=== PATIENT | male | born 1980 | race Caucasian/White ===

== ENCOUNTER → 2018-07-07 | Outpatient (CLI) | payer OTHER ==
[2018-07-04 13:34] VITALS: BMI 35.7
[2018-07-07 14:05] VITALS: BP 122/84; PULSE 75; RESP 16
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
== END ==
LOC: PNWHC3 13:43
PROVIDERS: ATTEND Anesthesiology
DX: G89.29 Other chronic pain (principal); M25.561 Pain in right knee; Z79.891 Long term (current) use of opiate analgesic; Z79.2 Long term (current) use of antibiotics
CPT/HCPCS: 99211

== ENCOUNTER → 2018-08-03 | Outpatient (CLI) | payer OTHER ==
[2018-08-03 12:28] VITALS: BP 117/80; PULSE 89; RESP 20
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
== END | disposition home or self-care (01) ==
LOC: PNWHC3 12:02
PROVIDERS: ATTEND Anesthesiology
DX: G89.21 Chronic pain due to trauma (principal); M25.561 Pain in right knee; S89.81XA Other specified injuries of right lower leg, initial encounter; L40.9 Psoriasis, unspecified; Z79.891 Long term (current) use of opiate analgesic; Z79.899 Other long term (current) drug therapy
CPT/HCPCS: 99211

== ENCOUNTER → 2018-09-19 | Outpatient (CLI) | payer OTHER ==
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
== END | disposition home or self-care (01) ==
LOC: PNWHC3 12:10
PROVIDERS: ATTEND Specialist
DX: G89.21 Chronic pain due to trauma (principal); M25.561 Pain in right knee; S89.91XA Unspecified injury of right lower leg, initial encounter; Z79.891 Long term (current) use of opiate analgesic; Z79.899 Other long term (current) drug therapy; Z79.1 Long term (current) use of non-steroidal anti-inflammatories (NSAID); Z72.0 Tobacco use; Z71.6 Tobacco abuse counseling
CPT/HCPCS: 80307; 99211; G0482

== ENCOUNTER → 2018-11-18 | Outpatient (CLI) | payer OTHER ==
[2018-11-18 14:36] LABS: Basophils # (A) 0.1 k/uL (0-0.2); Basophils % (A) 1 %; Eosinophils # (A) 0.2 k/uL (0-0.7); Eosinophils % (A) 3 %; HCT 35.9 % (39.0-53.0); HGB 11.4 gm/dL (13.0-17.5); Lymphocytes # (A) 2.5 k/uL (1.0-4.8); Lymphocytes % (A) 28 %; MCH 28.6 pg (25.0-35.0); MCHC 31.8 g/dL (31.0-37.0); Mean Platelet Volume 6.4; Monocytes # (A) 0.5 k/uL (0-1.0); Monocytes % (A) 6 %; Neutrophils # (A) 5.6 k/uL (1.3-7.7); Neutrophils % (A) 62 %; Platelet Count 615 k/uL (150-450); RBC 3.99 m/uL (4.30-5.90)
[2018-11-18 16:00] LABS: Erythrocyte Sedimentation Rate 94 mm/hr (0-15)
[2018-11-18 19:07] LABS: Albumin 4.5 g/dL (3.80-4.90); Albumin/Globulin Ratio 1.32 (1.60-3.17); Anion Gap 7.3 mmol/L (4.00-12.00); Calcium 9.4 mg/dL (8.7-10.3); Carbon Dioxide 23.7 mmol/L (21.6-31.8); Globulin 3.4 g/dL (1.6-3.3); Potassium 4.6 mmol/L (3.5-5.5); Total Bilirubin 0.4 mg/dL (0.3-1.2); Total Protein 7.9 g/dL (6.2-8.2)
[2018-11-18 19:50] LABS: Rheumatoid Factor 5 IU/mL (0-15)
== END | disposition home or self-care (01) ==
LOC: LABWHC1 12:47
PROVIDERS: ATTEND Physician Assistant
DX: Z00.00 Encounter for general adult medical examination without abnormal findings (principal); L40.52 Psoriatic arthritis mutilans
CPT/HCPCS: 36415; 80053; 80061; 85025; 85652; 86038; 86431

== ENCOUNTER → 2018-11-28 | Outpatient (CLI) | payer OTHER ==
[2018-11-28 13:26] VITALS: BP 124/87; PULSE 98; RESP 16
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
== END ==
LOC: PNWHC3 13:01
PROVIDERS: ATTEND Anesthesiology
DX: S82.141A Displaced bicondylar fracture of right tibia, initial encounter for closed fracture (principal); Z79.891 Long term (current) use of opiate analgesic; Z79.899 Other long term (current) drug therapy; Z72.0 Tobacco use; Z71.6 Tobacco abuse counseling
CPT/HCPCS: 99211

== ENCOUNTER → 2019-01-02 | Outpatient (CLI) | payer OTHER ==
[2019-01-02 13:06] VITALS: BP 130/79; PULSE 104; RESP 16
--- NOTE | 2019-01-02 13:27 | P.PAINPG ---
Subjective Progress Note Date: 01/02/19 Deniz is a 38-year-old gentleman presented today for follow-up. He continues to have pain in his right leg and right knee. He has had multiple knee surgeries most recently December 2018. He reports he had a meniscal repair done in December. He reports that his pain is a little bit better but not very much. He continues to use pain medications together by throughout the day. He still on crutches. He is also complaining more of numbness and tingling along with shooting pain going down his right leg from his upper leg. He reports that he has some weakness in his right leg which is new compared to before. He uses [place] 5 mg 1-2 tablets per day along with gabapentin and Robaxin. He denies any side effects from the current medication regimen. He denies any changes in his medication regimen. Objective - Vital Signs Vital signs: Vital Signs Temp Pulse 104 H 01/02/19 12:57 Resp 16 01/02/19 12:57 BP 130/79 01/02/19 12:57 Pulse Ox 99 01/02/19 12:57 Intake & Output 01/01/19 01/02/19 01/02/19 18:59 06:59 18:59 Weight 106.594 kg - Exam PHYSICAL EXAM: Constitutional: Awake and alert no distress Cardiovascular exam: Regular rate, no lower extremity edema, palpable pulses bilaterally Respiratory exam: No audible wheezing, no accessory muscle usage Abdominal exam: Soft nontender Muscular skeletal exam: - Cervical spine: Nontender to palpation bilaterally. Range of motion is not limited. Spurling is negative bilateral. Facet loading is negative bilaterally - Lumbar spine: Preserved lumbar lordosis. No changes in skin. Nontender palpation bilateral. Patient has full range of motion in flexion and extension as well as lateral sidebending. Straight leg raise is positive on the right at about 45. Facet loading is negative. Nontender over the SI joints. JESUS MANUEL Negative, Gaenselons negative, SI Joint compression negative. Neuro exam: Normal sensation bilateral upper and lower extremities. Deep tendon reflexes in upper extremities are 2+. Deep tendon reflex in the left leg is normal. Deep tendon reflexes decreased in the right leg compared to the left.. Solis's is negative Psychiatric exam: Cooperative, good insight Assessment and Plan Assessment: #1 chronic knee pain #2 lumbar radiculopathy Plan: And discussion with patient regarding pain medications in the usage. Patient has signed the opioid started talking form maps was checked. Urine drug screens of been appropriate over the his visits in the clinic. Also discussed with him that his radicular symptoms down right leg and weakness in the right leg are concerning for nerve impingement from his lumbar spine. This point I believe an MRI of lumbar spine may be required in order to rule out any nerve root impingement. I will refill his medications today for 2 months time. PQRS Measure Charge Sheet Measure #130: Documentation of Current Meds in Medical Chart: Patient's medications documented in chart Measure #226: Tobacco Use: Screen & Cessation Intervention: Pt screened for tobacco use AND intervention given Measure #111: Pneumonia Vaccination: Pneumococcal vaccine administered or previously received Measure #47: Advance Care Plan: Advance care planning discussed & documented, plan or surrogate given Measure #412: Opioid Treatment Agreement: Documented signed opioid trtmnt agreemnt min once during opioid trtmnt Measure #408: Opioid Therapy Follow-up Evaluation: Patient had f/u eval minimum every 3 months during opioid therapy Measure #317: Preventitive Care & Scrn High Bld Press & F/U: Normal blood pressure, f/u not required Measure #128: Body Mass Index (BMI) Screening & Follow-up: BMI documented ABOVE normal parameters - f/u documented Measure #131: Pain Assessment & Follow-up: Pain positive & plan documented PQRS Narrative: Smoking Status Current every day smoker Do You Want the Pneumonia Yes Vaccine AT THIS TIME? Narcotic Agreement Date Signed 07/07/18 Blood Pressure 130/79 Pain Intensity [Right Knee] 8 Scale Used Numeric (1 - 10) Hx Alcohol Use (MH) No Home Medications: Ambulatory Orders Acetaminophen Tab [Tylenol Tab] 1,000 mg PO Q6H 04/26/18 Gabapentin [Neurontin] 600 mg PO TID 04/26/18 HYDROcodone/APAP 5-325MG [[place] 5-325] 1 tab PO BID PRN 05/12/18 PARoxetine [Paxil] 20 mg PO DAILY 05/12/18 Methocarbamol [Robaxin-750] 750 mg PO TID 06/09/18 Zolpidem [Ambien] 5 mg PO HS 06/09/18 Fluticasone Nasal [place] [Flonase Nasal [place]] 2 spr EA NOSTRIL DAILY 07/04/18 Ibuprofen [Motrin Ib] 800 mg PO Q6H 07/04/18 Injection In Humira Family 1 injection SQ Q90D 07/04/18 Ointment 1 applicate TOPICAL QID 09/19/18 Controlled Substance Measures - Controlled Substance Measures Is patient prescribed a controlled substance at discharge?: Yes When asked, does pt state using other controlled substances?: No If prescribed controlled substance>3 days was MAPS reviewed?: Yes If Rx opioid, was Start Talking consent form obtained?: Yes If opioid is for acute pain is fill amount 7 days or less?: No Was information provided regarding opioid addiction?: Yes
== END ==
LOC: PNWHC3 12:24
PROVIDERS: ATTEND Hospitalist
DX: G89.29 Other chronic pain (principal); M25.561 Pain in right knee; M54.16 Radiculopathy, lumbar region; F17.200 Nicotine dependence, unspecified, uncomplicated; Z79.1 Long term (current) use of non-steroidal anti-inflammatories (NSAID); Z79.891 Long term (current) use of opiate analgesic; Z79.899 Other long term (current) drug therapy
CPT/HCPCS: 99211

== ENCOUNTER → 2019-02-21 | Outpatient (CLI) | payer OTHER ==
--- NOTE | 2019-02-21 14:23 | MR ---
EXAMINATION TYPE: MR lumbar spine wo con DATE OF EXAM: 02/21/2019 COMPARISON: None HISTORY: radiculopathy TECHNIQUE: Multiplanar, multisequence images of the lumbar spine were acquired. L1-L2: Normal disc appearance without desiccation. No herniation, protrusion or disc bulging. No ca nal stenosis is present. Foramina are patent bilaterally. L2-L3: Normal disc appearance without desiccation. No herniation, protrusion or disc bulging. No ca nal stenosis is present. Foramina are patent bilaterally. L3-L4: Normal disc appearance without desiccation. No herniation, protrusion or disc bulging. No ca nal stenosis is present. Foramina are patent bilaterally. L4-L5: Minimal posterior central disc bulge causes only slight anterior mass effect on the thecal sac . No foraminal encroachment or central stenosis. L5-S1: Normal disc appearance without desiccation. No herniation, protrusion or disc bulging. No ca nal stenosis is present. Foramina are patent bilaterally. Lumbar segments are intact. No paraspinal masses are identified. Conus medullaris has a normal appe arance. Lumbar vertebral bodies show preserved height, alignment, bone marrow signal. IMPRESSION: Mild degenerative disc disease.
== END ==
LOC: RADMRIMAIN 09:40
PROVIDERS: ATTEND Hospitalist
DX: M51.16 Intervertebral disc disorders with radiculopathy, lumbar region (principal)
CPT/HCPCS: 72148

== ENCOUNTER → 2019-03-01 | Outpatient (CLI) | payer OTHER ==
[2019-03-01 11:54] VITALS: BP 124/80; PULSE 86; RESP 18
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
== END ==
LOC: PNWHC3 11:39
PROVIDERS: ATTEND Specialist
DX: M54.16 Radiculopathy, lumbar region (principal); M25.561 Pain in right knee; Z98.890 Other specified postprocedural states; Z79.899 Other long term (current) drug therapy; Z79.891 Long term (current) use of opiate analgesic; Z72.0 Tobacco use
CPT/HCPCS: 99211

== ENCOUNTER 2019-04-05 08:05 | Day surgery (SDC) | payer OTHER ==
[2019-03-31 10:08] VITALS: BMI 38.0
[~2019-04-05 08:05] MED LIST: LACTATED RINGERS 1,000 ML IV SCH
[2019-04-05 08:49] VITALS: TEMP 97.3
--- NOTE | 2019-04-05 09:11 | P.PCN ---
Date of Procedure: 04/05/19 Procedure(s) Performed: 1-Lumbar radiculopathy due to disc herniation and neural foraminal stenosis 2- Lumber Degenerative Disc Diseases. POSTOPERATIVE DIAGNOSIS: Same as above PROCEDURE 1. Lumbar epidural steroid injection under fluoroscopic guidance at the L4-L5 level in the right paramedian approach 2. Lumbar epidurogram. ANESTHESIA: Local with 1% lidocaine; and IV moderate conscious sedation with Versed and fentanyl EBL: Minimal PROCEDURE INDICATION: The patient with low back pain and radicular symptoms unresponsive to conservative treatment. Fluoroscopy was used to optimize visualization of the needle placement and to maximize safety. PROCEDURE DESCRIPTION / TECHNIQUE: The patient was seen and identified in the preoperative area. Risks, benefits, complications including but not limited to infections ,bleeding ,allergic reaction to the medications ,nerve damage and not complete pain relief , and alternatives were discussed with the patient. The patient agreed to proceed with the procedure and signed the consent. IV was started, and vital signs were stabl e. Patient was taken to the OR and time out was completed. The patient was placed in the prone position on procedure table and a pillow was placed under the abdomen to reduce lumbar lordosis. The lumbosacral area was prepped and draped in the usual sterile fashion with ChloraPrep.Patient was closely monitored during the procedure. Conscious sedation was used during the procedure to decrease patients anxiety. Vital signs were monitered during the entire procedure. Using anterior-posterior fluoroscopy, the L4-L5 interlaminar space was identified and the skin over this site was marked and then infiltrated with 1% lidocaine subcutaneously. Subsequently, a 18-gauge 6 inch Tuohy epidural needle was inserted and advanced toward the epidural space using the Loss of resistance to air technique and guided by AP and lateral fluoroscopy. The correct needle position in the epidural space was verified with the injection of 1 mL of the water soluble contrast dye Omnipaque 180 contrast and observing an excellent epidurogram with the epidural spread of the dye using live fluoroscopy, after negative aspiration for blood and CSF and in the absence of paresthesias. Again after negative aspiration, a 8 ml mixture containing 80 mg of depomedrol and 5 ml of preservative free Normal Saline, and 2 ml of preservative freelidocaine 1% solution was injected and a washout of epidurogram was seen. Needle was withdrawn intact, skin was cleansed, and bandages were applied. patient tolerated procedure well and was transferred to PACU in stable condition. COMPLICATIONS: None
[2019-04-05] MEDS ORDERED: IV FLUID CONTINUATION 1,000 ML IV ONE (09:15)
[2019-04-05 09:35] VITALS: RESP 18
[2019-04-05 09:40] VITALS: BP 125/78; PULSE 68
--- NOTE | 2019-04-05 09:48 | FL ---
EXAMINATION TYPE: FL guided pain mgmt statistic DATE OF EXAM: 04/05/2019 CLINICAL HISTORY: Low back pain. TECHNIQUE: Fluoroscopy. COMPARISON: None. FINDINGS: Fluoroscopic guidance was provided during pain relief procedure performed by Dr. Velasco. A t otal of 5 seconds of fluoroscopic time was utilized during the procedure and 2 spot images are acquir ed. Images acquired shows needle localization of the lumbosacral junction with intrathecal injection. IMPRESSION: As Above.
== END 2019-04-05 09:58 | disposition home or self-care (01) ==
LOC: ORPAIN 08:05
PROVIDERS: ATTEND Anesthesiology
DX: M51.16 Intervertebral disc disorders with radiculopathy, lumbar region (principal); M48.061 Spinal stenosis, lumbar region without neurogenic claudication
CPT/HCPCS: 62323; J2250; J1030; J3010; Q9966

== ENCOUNTER → 2019-04-24 | Day surgery (SDC) | payer OTHER ==
[2019-04-19 15:24] VITALS: BMI 38.0
== END ==
LOC: ORPAIN 10:05
PROVIDERS: ATTEND Anesthesiology
DX: Z53.9 Procedure and treatment not carried out, unspecified reason (principal)

== ENCOUNTER → 2019-04-26 | Outpatient (CLI) | payer OTHER ==
[2019-04-26 12:23] VITALS: BP 117/78; PULSE 54; RESP 18
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
== END | disposition home or self-care (01) ==
LOC: PNWHC3 11:52
PROVIDERS: ATTEND Anesthesiology
DX: M51.36 Other intervertebral disc degeneration, lumbar region (principal); M51.86 Other intervertebral disc disorders, lumbar region; M25.561 Pain in right knee; F11.20 Opioid dependence, uncomplicated; Z98.890 Other specified postprocedural states
CPT/HCPCS: 80307; G0482; G0463; 99211

== ENCOUNTER 2019-05-01 09:58 | Day surgery (SDC) | payer OTHER ==
[2019-04-26 09:45] VITALS: BMI 38.0
[2019-05-01 11:02] VITALS: RESP 18; TEMP 97.4
[2019-05-01] MEDS ORDERED: LACTATED RINGERS 1,000 ML IV ONE (11:05)
[2019-05-01] MEDS ORDERED: LIDOCAINE 1% 20 ML VIAL (10MG/ML) FOR IV START INTRADERMA ONE (11:06)
--- NOTE | 2019-05-01 11:55 | P.PCN ---
Date of Procedure: 05/01/19 Procedure(s) Performed: PREOPERATIVE DIAGNOSIS: 1- Lumbar radiculopathy, Lumbar Degenerative Disc Diseases 2-Lumbar spondylosis with Facet arthropathy without myelopathy POSTOPERATIVE DIAGNOSIS: 1-Lumber Degenerative Disc Diseases 2-Lumbar spondylosis with Facet arthropathy without myelopathy PROCEDURE 1. Lumbar epidural steroid injection under fluoroscopic guidance at the L4-5 level using a right paramedian approach 2. Lumbar epidurogram. ANESTHESIA: Local with 1% lidocaine 3 ml, moderate sedation with intravenous Versed and fentanyl Fluoroscopy was used for the procedure and images were saved in the radiology portion of the chart. EBL: Minimal PROCEDURE INDICATION: The patient with low back pain and radiculitis symptoms unresponsive to conservative treatment. Fluoroscopy was used to optimize visualization of the needle placement and to maximize safety. PROCEDURE DESCRIPTION / TECHNIQUE: The patient was seen and identified in the preoperative area. Risks, benefits, complications including but not limited to infections ,bleeding ,allergic reaction to the medications ,nerve damage and incomplete pain releif , and alternatives were discussed with the patient. The patient agreed to proceed with the procedure and signed the consent. IV was started, and vital signs were stable. Patient was taken to the OR and time out was completed. The patient was placed in the prone position on procedure table and a pillow was placed under the abdomen to reduce lumbar lordosis. The lumbosacral area was prepped and draped in the usual sterile fashion. Vitals were closely monitored during the procedure. Conscious sedation was used during the procedure to decrease patients anxiety. Using anterior-posterior fluoroscopy, the L4-5 interlaminar space was identified and the skin over this site was marked and then infiltrated with 1% lidocaine subcutaneously. Subsequently, a 18-gauge 6" Tuohy epidural needle was inserted and advanced toward the epidural space using the loss of resistance technique and guided by AP and lateral/ oblique fluoroscopy. The correct needle position in the epidural space was verified with the injection of 2 mL of the water soluble contrast dye Isovue 200 contrast under live fluoroscopy, observing an excellent epidurogram. Then, after negative aspiration for blood and CSF and in the absence of paresthesias, a 5 ml mixture containing 80 mg of Depo-medrol , 3 ml of preservative free Normal Saline, and 1 ml of preservative free lidocaine 1% solution was injected and a washout epidurogram was seen. Needle was withdrawn intact, skin was cleansed, and bandages were applied. COMPLICATIONS: None DISPOSITION / PLANS: The patient was placed in a supine position and transferred to the recovery area in a stable condition for observation. There was no evidence of lower extremity motor or sensory deficit after the procedure. Patient was discharged from the recovery room after meeting discharge criteria. Home discharge instructions were given to the patient by the staff. The patient will schedule a follow up in the clinic in 2-4 weeks.
[2019-05-01] MEDS ORDERED: IV FLUID CONTINUATION 1,000 ML IV ONE (11:59)
[2019-05-01 12:27] VITALS: BP 117/74; PULSE 61
--- NOTE | 2019-05-01 14:53 | FL ---
Fluoroscopy HISTORY: Pain 4 seconds fluoroscopy time supplied to the referring clinician. 2 intraoperative C-arm images docume nt the procedure. See dictated report from anesthesia.
== END 2019-05-01 12:39 | disposition home or self-care (01) ==
LOC: ORPAIN 09:58
PROVIDERS: ATTEND Anesthesiology
DX: M51.16 Intervertebral disc disorders with radiculopathy, lumbar region (principal); M47.26 Other spondylosis with radiculopathy, lumbar region; M25.561 Pain in right knee; F11.20 Opioid dependence, uncomplicated; Z79.899 Other long term (current) drug therapy
CPT/HCPCS: 62323; J2250; J1030; J3010; Q9966; 99152

== ENCOUNTER → 2019-07-11 | Outpatient (CLI) | payer OTHER ==
[2019-07-11 13:02] VITALS: BP 127/70; PULSE 76; RESP 16
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
== END | disposition home or self-care (01) ==
LOC: PNWHC3 12:27
PROVIDERS: ATTEND Student in an Organized Health Care Education/Training Program
DX: M25.561 Pain in right knee (principal); M47.816 Spondylosis without myelopathy or radiculopathy, lumbar region; E66.9 Obesity, unspecified; F11.90 Opioid use, unspecified, uncomplicated; Z68.38 Body mass index [BMI] 38.0-38.9, adult; F17.200 Nicotine dependence, unspecified, uncomplicated; Z96.651 Presence of right artificial knee joint; Z79.899 Other long term (current) drug therapy
CPT/HCPCS: 99211

== ENCOUNTER → 2019-09-04 | Outpatient (CLI) | payer OTHER ==
[2019-09-04 13:11] VITALS: BP 119/75; PULSE 105; RESP 16
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
== END | disposition home or self-care (01) ==
LOC: PNWHC3 12:37
PROVIDERS: ATTEND Anesthesiology
DX: M25.561 Pain in right knee (principal); M47.816 Spondylosis without myelopathy or radiculopathy, lumbar region; E66.9 Obesity, unspecified; F11.90 Opioid use, unspecified, uncomplicated; F17.200 Nicotine dependence, unspecified, uncomplicated; Z98.890 Other specified postprocedural states; Z79.899 Other long term (current) drug therapy
CPT/HCPCS: 99211

== ENCOUNTER → 2019-10-31 | Outpatient (CLI) | payer OTHER ==
[2019-10-31 12:06] VITALS: BP 130/88; PULSE 98; RESP 16
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
== END ==
LOC: PNWHC3 11:47
PROVIDERS: ATTEND Anesthesiology
DX: M47.816 Spondylosis without myelopathy or radiculopathy, lumbar region (principal); E66.9 Obesity, unspecified; M25.561 Pain in right knee; Z98.890 Other specified postprocedural states; F11.90 Opioid use, unspecified, uncomplicated; F17.200 Nicotine dependence, unspecified, uncomplicated; Z79.891 Long term (current) use of opiate analgesic; Z79.899 Other long term (current) drug therapy; Z79.1 Long term (current) use of non-steroidal anti-inflammatories (NSAID)
CPT/HCPCS: 99211

== ENCOUNTER → 2020-03-06 | Outpatient (CLI) | payer OTHER ==
--- NOTE | 2020-03-06 10:03 | P.PAINPG ---
Subjective Progress Note Date: 03/06/20 Mark was seen via telemedicine, doing well, no changes in his leg pain. VAS 5/10, no new symptoms, tolerating well. pain described as aching, sometimes sharp. Has low back pain as well, no new symptoms. reports DAVE did not help. Medication helping without side effects. Objective - Exam GENERAL: Awake, alert, oriented, no distress HENT: atraumatic, normocephalic, trachea midline, nose midline RESP: NO audible wheezing, no coughing CARDIO: Reg rate (per patient palpation), no edema ABDOMEN: Non tender (per patient), no distension CERVICAL SPINE: Range of motion preserved, Spurling Negative LUMBAR SPINE: Limited range of motion secondary to pain, pain with flexion and extension of the Lumbar spine. Right knee: no swelling noted, no erythema noted on exam (telemed) NEURO: Gait is Normal, Sensation in Lower ext normal (per patient) PSYCH: Cooperative, normal affect. Assessment and Plan Assessment: Knee pain s/p tibia fracture opioid dependence Plan: Will continue with current medications, follow up with the patient in 4 weeks. Refill medications electronically today. Maps checked, Opioid start talking form on chart, SOAP score documented in chart. PQRS Measure Charge Sheet Measure #130: Documentation of Current Meds in Medical Chart: Patient's medications documented in chart Measure #226: Tobacco Use: Screen & Cessation Intervention: Pt not a tobacco user Measure #111: Pneumonia Vaccination: Pneumococcal vaccine NOT administered or previously given Measure #47: Advance Care Plan: Advance care planning discussed & documented, plan or surrogate given Measure #412: Opioid Treatment Agreement: Documented signed opioid trtmnt agreemnt min once during opioid trtmnt Measure #408: Opioid Therapy Follow-up Evaluation: Patient had f/u eval minimum every 3 months during opioid therapy Measure #317: Preventitive Care & Scrn High Bld Press & F/U: Blood pressure not documented, patient not eligible Measure #128: Body Mass Index (BMI) Screening & Follow-up: BMI documented within normal parameters Measure #131: Pain Assessment & Follow-up: Pain positive & plan documented Measure #431: Unhealthy Alcohol Use Preventative Care & Scrn: Patient not identified as an unhealthy alcohol user PQRS Narrative: Smoking Status Current every day smoker Narcotic Agreement Date Signed 07/11/19 Pain Intensity [Right Leg] 8 Scale Used Numeric (1 - 10) Hx Alcohol Use (MH) No Home Medications: Ambulatory Orders PARoxetine [Paxil] 30 mg PO HS 05/12/18 Zolpidem [Ambien] 5 mg PO HS 06/09/18 Fluticasone Nasal [place] [Flonase Nasal [place]] 2 spr EA NOSTRIL DAILY 07/04/18 Methotrexate/Pf [Rasuvo 30 mg/0.6 ml Autoinj] 30 mg SQ WE 10/26/19 Methocarbamol [Robaxin-750] 750 mg PO TID #90 tab 12/25/19 Gabapentin [Neurontin] 300 mg PO TID 30 Days #90 cap 01/08/20 Gabapentin [Neurontin] 600 mg PO TID 30 Days #90 tab 01/08/20 HYDROcodone/APAP 5-325MG [[place] 5-325] 1 tab PO Q12HR PRN 30 Days #40 tab 01/08/20 Meloxicam [Mobic] 7.5 mg PO DAILY PRN #30 tab 01/08/20 Monoclonal Antibody Infusion IV Q60D 03/04/20 Controlled Substance Measures - Controlled Substance Measures Is patient prescribed a controlled substance at discharge?: Yes When asked, does pt state using other controlled substances?: No If prescribed controlled substance>3 days was MAPS reviewed?: Yes If Rx opioid, was Start Talking consent form obtained?: Yes If opioid is for acute pain is fill amount 7 days or less?: No Was information provided regarding opioid addiction?: Yes
== END | disposition home or self-care (01) ==
LOC: PNWHC3 07:00
PROVIDERS: ATTEND Hospitalist
DX: Z53.9 Procedure and treatment not carried out, unspecified reason (principal)

== ENCOUNTER 2020-03-30 13:10 | Emergency (ER) | payer OTHER ==
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
[2020-03-30] MEDS ORDERED: ARIPiprazole 10 MG TAB PO STA (14:44)
[2020-03-30 15:36] LABS: Amphetamine Screen,Urine Not Detected (NotDetected); Barbiturate Screen,Urine Not Detected (NotDetected); Benzodiazepines Screen,Urine Not Detected (NotDetected); Cocaine Screen,Urine Not Detected (NotDetected); Methadone Screen, Urine Not Detected (NotDetected); Opiate Screen,Urine Detected (NotDetected); Oxycodone Screen, Urine Not Detected (NotDetected); Phencyclidine Screen,Urine Not Detected (NotDetected); Tricyclic Antidepressant,Urine Not Detected (NotDetected); Urn Cannabinoid Scrn Not Detected (NotDetected)
[2020-03-31] MEDS ORDERED: MELOXICAM 7.5 MG TAB PO PRN (04:46)
[2020-03-31] MEDS ORDERED: HYDROcodone/APAP 5-325MG 1 EACH TAB PO PRN (04:46)
[2020-03-31] MEDS ORDERED: FLUTICASONE 50MCG/SPRAY NASAL 16GM EA NOSTRIL SCH (09:00)
[2020-03-31] MEDS ORDERED: GABAPENTIN 600 MG PO SCH (09:00)
[2020-03-31] MEDS: GABAPENTIN 300 MG CAP PO SCH ×3 (09:57→22:53)
[2020-03-31] MEDS: METHOCARBAMOL 750 MG TAB PO SCH ×2 (10:03→22:53)
[2020-03-31 13:51] VITALS: TEMP 97.2
[2020-03-31] MEDS ORDERED: ACETAMINOPHEN TAB 500 MG TAB PO STA (16:42)
[2020-03-31] MEDS ORDERED: PARoxetine 20 MG TAB PO SCH (21:00)
[2020-03-31] MEDS ORDERED: ZOLPIDEM 5 MG TAB PO PRN (21:00)
[2020-04-01 01:34] LABS: HCT 41.1 % (39.0-53.0); HGB 14.3 gm/dL (13.0-17.5); MCH 33.2 pg (25.0-35.0); MCHC 34.9 g/dL (31.0-37.0); MCV 95.1 fL (80.0-100.0); Mean Platelet Volume 7.5; Platelet Count 255 k/uL (150-450); RBC 4.32 m/uL (4.30-5.90); RDW 13.5 % (11.5-15.5); WBC 6.5 k/uL (3.8-10.6)
[2020-04-01 01:34] LABS: Appearance,Urine Clear (Clear); Bilirubin,Urine Negative (Negative); Blood,Urine Negative (Negative); Color,Urine Yellow; Glucose,Urine (UA) Negative (Negative); Ketones,Urine Negative (Negative); Leukocyte Esterase,Urine Negative (Negative); Nitrite,Urine Negative (Negative); PH, Urine 6.5 (5.0-8.0); Protein,Urine Negative (Negative); Specific Gravity,Urine 1.012 (1.001-1.035)
[2020-04-01 01:46] LABS: ALT 64 U/L (4-49); AST 45 U/L (17-59); African American GFR (CKD) >90 (>60 ml/min/1.73 sqM); Alkaline Phosphatase 70 U/L (38-126); Anion Gap 7 mmol/L; Blood Urea Nitrogen 18 mg/dL (9-20); Calcium 9.5 mg/dL (8.4-10.2); Carbon Dioxide 24 mmol/L (22-30); Chloride 104 mmol/L (98-107); Glucose 105 mg/dL (74-99); Non-African American GFR(CKD) >90 (>60 ml/min/1.73 sqM); Potassium 4.4 mmol/L (3.5-5.1); Sodium 135 mmol/L (137-145); Total Bilirubin 0.7 mg/dL (0.2-1.3); Total Protein 7.1 g/dL (6.3-8.2)
[2020-04-01 07:47] VITALS: BP 110/58; PULSE 56; RESP 18
[2020-04-03] MEDS ORDERED: METHOTREXATE SQ SCH (09:00)
== END 2020-04-01 08:01 ==
LOC: EC 13:10
DX: F32.9 Major depressive disorder, single episode, unspecified (principal); R45.851 Suicidal ideations; F41.9 Anxiety disorder, unspecified; F17.200 Nicotine dependence, unspecified, uncomplicated; Z79.51 Long term (current) use of inhaled steroids; Z79.899 Other long term (current) drug therapy
CPT/HCPCS: 99285 ×2; 82075; 36415; 80053; 85027; 81003; 80306; U0003

== ENCOUNTER → 2020-04-16 | Outpatient (CLI) | payer OTHER ==
[2020-04-16 13:31] VITALS: BP 137/92; PULSE 68; RESP 16
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
== END | disposition home or self-care (01) ==
LOC: PNWHC3 13:03
PROVIDERS: ATTEND Specialist
DX: M51.36 Other intervertebral disc degeneration, lumbar region (principal); M47.816 Spondylosis without myelopathy or radiculopathy, lumbar region; M46.96 Unspecified inflammatory spondylopathy, lumbar region; M25.561 Pain in right knee; F17.200 Nicotine dependence, unspecified, uncomplicated; Z79.899 Other long term (current) drug therapy; Z79.891 Long term (current) use of opiate analgesic
CPT/HCPCS: 80307; G0482; G0463; 99211

== ENCOUNTER 2020-05-16 08:30 | Day surgery (SDC) | payer OTHER ==
[2020-05-15 09:22] VITALS: BMI 36.9
[2020-05-16 08:54] VITALS: TEMP 97.8
[2020-05-16] MEDS ORDERED: LACTATED RINGERS 1,000 ML IV ONE (08:54)
[2020-05-16] MEDS ORDERED: IV FLUID CONTINUATION 1,000 ML IV ONE (08:54)
[2020-05-16] MEDS ORDERED: LIDOCAINE 1% (10MG/ML) FOR IV START INTRADERMA ONE (09:03)
[2020-05-16] MEDS ORDERED: methylPREDNISolone ACETATE 40 MG/ML 1 ML VIAL ONE (09:22)
[2020-05-16] MEDS ORDERED: ROPIVACAINE 5MG/ML 20ML VIAL ONE (09:22)
[2020-05-16] MEDS ORDERED: fentaNYL (PF) 50 MCG/ML 2 ML AMP ONE (09:22)
[2020-05-16] MEDS ORDERED: MIDAZOLAM 2 MG/2 ML VIAL ONE (09:22)
--- NOTE | 2020-05-16 09:47 | P.PCN ---
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 2-persistent Right knee pain after total knee surgery. Postoperative diagnoses= same as preop. Condition= stable. Complications=none. Anesthesia= moderate sedation with IV Versed 2 mg ,and fentanyl 100 g, and local infiltration with lidocaine 1% 3 mL. Description of the procedure= risk and benefit from the procedure discussed with the patient and he agreed with the preceding including but not limited to risk of infection and bleeding not complete pain relief and ALLERGIC reaction to the medication, patient taken to the operating room placed in supine position or standard monitors applied to the patient then after induction of anesthesia, the area prepped with chlorhexidine -3, then under fluoroscopy guidance and after using lidocaine 1% for skin and subcutaneous tissue infiltrations using 22-gauge Quincke-type spinal needle first needle advanced and placed at the superior medial epicondyle of the femur and the needle tip was in direct contact with the periosteum then 2 ML of ropivacaine 0.5% mixed with 20 mg of Depo-Medrol injected after negative aspiration, there was no paresthesia during the injection, then another 22 gauge spinal needle advanced at the superior lateral epicondyle of the femur, and the needle was in direct contact with the periosteum of the lateral epicondyle, then after negative aspiration for heme, and there was no paresthesia during the injection total of 2 ML of ropivacaine 0.5% mixed with 20 mg of Depo-Medrol injected after negative aspiration, and then another needle advanced and placed at the distal medial epicondyle of the tibia ,and the needle tip was placed at the direct contact on the periosteum of the medial epicondyle of the tibia, and then after negative aspiration for heme and there was no paresthesia during the injection 2 ML of ropivacaine 0.5% mixed with 20 mg of Depo-Medrol injected after negative aspiration patient tolerated the procedure well without any complication and will follow up with the pain clinic in a few weeks
--- NOTE | 2020-05-16 09:58 | FL ---
EXAMINATION TYPE: FL guided pain mgmt statistic DATE OF EXAM: 05/16/2020 HISTORY: Fluoroscopy time 18 seconds of fluoroscopy provided. IMPRESSION: 1. Fluoroscopy time.
[2020-05-16 10:10] VITALS: BP 115/65; PULSE 74; RESP 16
== END 2020-05-16 10:40 | disposition home or self-care (01) ==
LOC: ORPAIN 08:30
PROVIDERS: ATTEND Specialist
DX: G57.81 Other specified mononeuropathies of right lower limb (principal); M25.561 Pain in right knee; Z98.890 Other specified postprocedural states
CPT/HCPCS: 64454; J2250; J1030; J3010; J2795; 99152

== ENCOUNTER → 2020-06-04 | Day surgery (SDC) | payer OTHER ==
[~2020-06-04] MED LIST changes: +IV FLUID CONTINUATION 1,000 ML IV ONE; +LACTATED RINGERS 1,000 ML IV ONE; +LIDOCAINE 1% (10MG/ML) FOR IV START INTRADERMA ONE; +MIDAZOLAM 2 MG/2 ML VIAL ONE; +ROPIVACAINE 5MG/ML 20ML VIAL ONE; +fentaNYL (PF) 50 MCG/ML 2 ML AMP ONE; +methylPREDNISolone ACETATE 80 MG/ML 1 ML VIAL ONE
[2020-06-04 08:04] VITALS: RESP 18; TEMP 97.8
--- NOTE | 2020-06-04 08:34 | P.PCN ---
Date of Procedure: 06/04/20 Procedure(s) Performed: Operation=Right genicular nerves block under fluoroscopy guidance.(Fluoroscopy images availablein radiology department ) ( total of 3 nerves blocked ) Preoperative diagnoses=1-Right genicular neuralgia. 2-persistent Right knee pain after total knee surgery. Postoperative diagnoses= same as preop. Condition= stable. Complications=none. Anesthesia= moderate sedation with IV Versed 2 mg ,and fentanyl 100 g, and local infiltration with lidocaine 1% 3 mL. Description of the procedure= risk and benefit from the procedure discussed with the patient and he agreed with the preceding including but not limited to risk of infection and bleeding not complete pain relief and ALLERGIC reaction to the medication, patient taken to the operating room placed in supine position or standard monitors applied to the patient then after induction of anesthesia, the area prepped with chlorhexidine -3, then under fluoroscopy guidance and after using lidocaine 1% for skin and subcutaneous tissue infiltrations using 22-gauge Quincke-type spinal needle first needle advanced and placed at the superior medial epicondyle of the femur and the needle tip was in direct contact with the periosteum then 2 ML of ropivacaine 0.5% mixed with 20 mg of Depo-Medrol injected after negative aspiration, there was no paresthesia during the injection, then another 22 gauge spinal needle advanced at the superior lateral epicondyle of the femur, and the needle was in direct contact with the periosteum of the lateral epicondyle, then after negative aspiration for heme, and there was no paresthesia during the injection total of 2 ML of ropivacaine 0.5% mixed with 20 mg of Depo-Medrol injected after negative aspiration, and then another needle advanced and placed at the distal medial epicondyle of the tibia ,and the needle tip was placed at the direct contact on the periosteum of the medial epicondyle of the tibia, and then after negative aspiration for heme and there was no paresthesia during the injection 2 ML of ropivacaine 0.5% mixed with 20 mg of Depo-Medrol injected after negative aspiration patient tolerated the procedure well without any complication and will follow up with the pain clinic in a few weeks
[2020-06-04 08:56] VITALS: BP 111/66; PULSE 52
--- NOTE | 2020-06-04 09:29 | FL ---
EXAMINATION TYPE: FL guided pain mgmt statistic DATE OF EXAM: 06/04/2020 CLINICAL HISTORY: Right knee pain. TECHNIQUE: Fluoroscopy. COMPARISON: None. FINDINGS: Fluoroscopic guidance was provided during pain relief procedure performed by Dr. Osman . A total of 13 seconds of fluoroscopic time was utilized during the procedure and for spot images a re acquired. Images acquired shows needle localization distal femoral and proximal tibial level. The re is partial visualization of surgical change lateral aspect of the proximal tibia. IMPRESSION: As Above.
== END ==
LOC: ORPAIN 07:42
PROVIDERS: ATTEND Specialist
DX: M25.561 Pain in right knee (principal); G58.8 Other specified mononeuropathies; Z96.651 Presence of right artificial knee joint
CPT/HCPCS: 64454; J2250; J1040; J3010; J2795; 64450; 99152

== ENCOUNTER → 2020-06-12 | Outpatient (CLI) | payer OTHER ==
[2020-06-12 10:57] VITALS: BP 104/64; PULSE 62; RESP 18
--- NOTE | 2020-06-13 18:18 | P.PAINPG ---
Subjective Progress Note Date: 06/12/20 This is a follow-up visit for this 40-year-old gentleman , who had chronic low back pain, and he had chronic right knee pain the knee pain started after a traumatic injury. Previously we have done lumbar epidural steroid injections 2, he had no benefit from it, and previously he had a right knee steroid injection done by orthopedic surgeon and he did not benefit from it, he continued to use braces around the knee. Recently we did genicular nerve block 2, he had minimal benefit from the genicular nerve block. He reported that his pain was 8/10 in the right knee before the block dropped to 6/10. Pain is mostly around his knee and the mid thigh anteriorly to the mid calf posteriorly. Currently he is on Neurontin 900 mg 3 times a day ( 600 +300 ), Robaxin 750 mg 3 times a day, Mobic 7.5 mg daily, [place] 5/325 every 8 hours when necessary ( 40 per month ). He is trying to stay active, however it is difficult secondary to his pain, he denies any side effect of the medication and he reported the current medication helping him to control his pain and do activity of daily livings, but he reported that he is having a hard time getting Robaxin secondary to insurance approval Objective - Vital Signs Vital signs: Vital Signs Temp Pulse 62 06/12/20 10:50 Resp 18 06/12/20 10:50 BP 104/64 06/12/20 10:50 Pulse Ox 97 06/12/20 10:50 - Exam -Constitutiona : Cooperative , not in acute distress . -HEENT : nech : supple , no Lymphadenopathy , normal thyroid size . : eyes : no ptosis , no icterus, no photophobia . - neurologic : Cranial nerve II to XII intact , no focal neurological deffecit . -psychatric : alert , oriented X 3 , appropriate affect , intact judgment and insight . -Lymphatic : no Lymphadenopathy . - musculoskeltal : Lumber spine moter stegnth lower extremities ,thigh and legs 5/5 Right side , 5/5 Left side deep tendon reflexes : normal Knee Jerk , normal ankle Jerk lumber facet Loading Test =positive Right , positive Left Range of motion of the lumbar spine Flexion 30 degrees, extension 10 degrees strait leg raising test = positive at 45 degree Fabere test= positive Right , and positive LT . tenderness over the Sacroiliac joint on the Right side Knee= flexion and extension of the right knee associated with pain, tenderness over the medial and lateral aspect of the right knee. MRI of the lumbar spine done in 2019= degenerative disc disease Assessment and Plan Plan: Assessment and plan= 1-right knee arthralgia patient had no benefit from intra- articular knee injection done by orthopedic surgeon. 2-low back pain secondary to lumbar degenerative disc disease, and lumbar spondylosis with lumbar facet arthropathy Patient had no benefit after lumbar epidural steroid injections 2. 3-chronic and current use of high-risk medication( opioid ). Currently most of the pain is in the right knee , he had no benefit from right knee intra-articular steroid injection, he did not benefit from genicular nerve block , for this reason he is not a candidate to have failed the right genicular nerves MAPS reviewed and it was appropriate. Prescription refill for Neurontin 300 mg 3 times a day ,and 600 mg 3 times a day, dispense 90 ,1 refill dispense 90 with 1 refill, Mobic 7.5 mg dispensed 30 with one refill, and [place] 5/325 nightly hours when necessary dispense 40 with 1 refill, discontinue Robaxin because patient had hard time getting medication secondary to insurance issues, will start patient on baclofen 10 mg 3 times a day dispensed 90 with 1 refill Time with Patient: Less than 30 PQRS Measure Charge Sheet Measure #130: Documentation of Current Meds in Medical Chart: Patient's medications documented in chart Measure #226: Tobacco Use: Screen & Cessation Intervention: Pt screened for tobacco use AND intervention given Measure #111: Pneumonia Vaccination: Pneumococcal vaccine NOT administered or previously given Measure #47: Advance Care Plan: Advance care planning discussed & documented, pt chose/unable to give Measure #412: Opioid Treatment Agreement: Documented signed opioid trtmnt agreemnt min once during opioid trtmnt Measure #408: Opioid Therapy Follow-up Evaluation: Patient had f/u eval minimum every 3 months during opioid therapy Measure #317: Preventitive Care & Scrn High Bld Press & F/U: Normal blood pressure, f/u not required Measure #128: Body Mass Index (BMI) Screening & Follow-up: BMI documented ABOVE normal parameters - f/u documented Measure #131: Pain Assessment & Follow-up: Pain positive & plan documented, Follow-up scheduled Measure #431: Unhealthy Alcohol Use Preventative Care & Scrn: Patient not identified as an unhealthy alcohol user PQRS Narrative: Smoking Status Current every day smoker Narcotic Agreement Date Signed 04/16/20 Blood Pressure 104/64 Pain Intensity [Lower Back] 6 Pain Intensity [Right Knee] 8 Scale Used Numeric (1 - 10) Hx Alcohol Use (MH) No Home Medications: Ambulatory Orders Monoclonal Antibody Infusion 1 dose IV DIRECTED 03/04/20 Folic Acid 1 mg PO DAILY 03/31/20 Propranolol HCl 40 mg PO TID 04/16/20 Venlafaxine HCl ER [Effexor Xr] 300 mg PO DAILY 04/16/20 hydrOXYzine pamoate [Vistaril] 50 mg PO TID 04/16/20 traZODone HCL 100 mg PO HS 04/16/20 Methotrexate (Unknown Dose) 1 dose IM WEEKLY 05/15/20 Baclofen 10 mg PO TID PRN 30 Days #90 tab 06/12/20 Gabapentin [Neurontin] 300 mg PO TID 30 Days #90 cap 06/12/20 Gabapentin [Neurontin] 600 mg PO TID 1 Days #90 tab 06/12/20 HYDROcodone/APAP 5-325MG [[place] 5-325] 1 tab PO Q8HR PRN 30 Days #40 tab 06/12/20 HYDROcodone/APAP 5-325MG [[place] 5-325] 1 tab PO Q8HR PRN 30 Days #40 tab 06/12 Meloxicam [Mobic] 7.5 mg PO DAILY PRN #30 tab 06/12/20 Controlled Substance Measures - Controlled Substance Measures Is patient prescribed a controlled substance at discharge?: Yes
== END | disposition home or self-care (01) ==
LOC: PNWHC3 10:35
PROVIDERS: ATTEND Specialist
DX: M51.36 Other intervertebral disc degeneration, lumbar region (principal); M47.816 Spondylosis without myelopathy or radiculopathy, lumbar region; M46.96 Unspecified inflammatory spondylopathy, lumbar region; M25.561 Pain in right knee; F17.200 Nicotine dependence, unspecified, uncomplicated; Z79.891 Long term (current) use of opiate analgesic; Z79.899 Other long term (current) drug therapy
CPT/HCPCS: 99211

== ENCOUNTER → 2020-07-08 | Outpatient (CLI) | payer OTHER ==
[2020-07-08 12:37] LABS: Basophils % (A) 1 %; Eosinophils # (A) 0.2 k/uL (0-0.7); Eosinophils % (A) 3 %; HCT 42.3 % (39.0-53.0); HGB 13.8 gm/dL (13.0-17.5); Lymphocytes # (A) 2.9 k/uL (1.0-4.8); Lymphocytes % (A) 34 %; MCH 30.7 pg (25.0-35.0); MCHC 32.6 g/dL (31.0-37.0); MCV 94.1 fL (80.0-100.0); Mean Platelet Volume 6.9; Monocytes # (A) 0.5 k/uL (0-1.0); Monocytes % (A) 6 %; Neutrophils # (A) 4.7 k/uL (1.3-7.7); Neutrophils % (A) 56 %; Platelet Count 294 k/uL (150-450); RBC 4.49 m/uL (4.30-5.90); RDW 12.9 % (11.5-15.5); WBC 8.5 k/uL (3.8-10.6)
[2020-07-08 20:13] LABS: Hemoglobin A1C 5.3 % (4.0-6.0)
[2020-07-08 23:17] LABS: ALT 50 U/L (10-49); AST 29 U/L (14-35); African American GFR (CKD) 95.5 (60.0-200.0); Albumin/Globulin Ratio 1.58 (1.60-3.17); Alkaline Phosphatase 93 U/L (41-126); BUN/Creat Ratio 16.36 Ratio (12.00-20.00); Calcium 8.8 mg/dL (8.7-10.3); Carbon Dioxide 26.8 mmol/L (21.6-31.8); Chloride 106 mmol/L (96-109); Chol/HDL Ratio 5.85; Cholesterol 158 mg/dL (0-200); Globulin 2.6 g/dL (1.6-3.3); Glucose 88 mg/dL (70-110); LDL Cholesterol,Calculated 71.6 mg/dL (0.0-131.0); Non-African American GFR(CKD) 82.4 (60.0-200.0); Potassium 4.6 mmol/L (3.5-5.5); Sodium 138 mmol/L (135-145); Total Bilirubin 0.7 mg/dL (0.2-1.2); Total Protein 6.7 g/dL (6.2-8.2)
[2020-07-08 23:23] LABS: Prolactin 8.7 ng/mL (2.1-17.7)
[2020-07-08 23:49] LABS: Folate, Serum >24.0 ng/mL; Valproic Acid (Depakene) 18.8 ug/mL (50.0-100.0)
== END | disposition home or self-care (01) ==
LOC: LABWHC1 11:49
DX: Z51.81 Encounter for therapeutic drug level monitoring (principal); Z79.899 Other long term (current) drug therapy
CPT/HCPCS: 36415; 80053; 80061; 80164; 82248; 82306; 82607; 82746; 83036; 84146; 84439; 84443; 85025

== ENCOUNTER → 2020-08-12 | Outpatient (CLI) | payer OTHER ==
[2020-08-12 10:35] VITALS: BP 104/74; PULSE 56; RESP 16; TEMP 98.3
--- NOTE | 2020-08-12 11:15 | P.PN ---
Subjective Progress Note Date: 08/12/20 Principal diagnosis: This is a follow-up visit for this 40-year-old gentleman , who had chronic low back pain, and he had chronic right knee pain the knee pain started after a traumatic injury. Previously we have done lumbar epidural steroid injections 2, he had no benefit from it, and previously he had a right knee steroid injection done by orthopedic surgeon and he did not benefit from it, he continued to use braces around the knee. Recently we did genicular nerve block 2, he had minimal benefit from the genicular nerve block. He reported that his pain was 8/10 in the right knee before the block dropped to 6/10. Pain is mostly around his knee and the mid thigh anteriorly to the mid calf posteriorly. Currently he is on Neurontin 900 mg 3 times a day ( 600 +300 ), Baclofen 10 mg 3 times a day, Mobic 7.5 mg daily, [place] 5/325 every 8 hours when necessary ( 40 per month ). He is trying to stay active, however it is difficult secondary to his pain, he denies any side effect of the medication and he reported the current medication helping him to control his pain and do activity of daily livings, but he reported that he is having a hard time getting Robaxin secondary to insurance approval Objective - Vital Signs Vital signs: Vital Signs Temp 98.3 F 08/12/20 10:31 Pulse 56 L 08/12/20 10:31 Resp 16 08/12/20 10:31 BP 104/74 08/12/20 10:31 Pulse Ox 96 08/12/20 10:31 - Exam -Constitutiona : Cooperative , not in acute distress . -HEENT : nech : supple , no Lymphadenopathy , normal thyroid size . : eyes : no ptosis , no icterus, no photophobia . - neurologic : Cranial nerve II to XII intact , no focal neurological deffecit . -psychatric : alert , oriented X 3 , appropriate affect , intact judgment and insight . -Lymphatic : no Lymphadenopathy . - musculoskeltal : Lumber spine moter stegnth lower extremities ,thigh and legs 5/5 Right side , 5/5 Left side deep tendon reflexes : normal Knee Jerk , normal ankle Jerk lumber facet Loading Test =positive Right , positive Left Range of motion of the lumbar spine Flexion 30 degrees, extension 10 degrees strait leg raising test = positive at 45 degree Fabere test= positive Right , and positive LT . tenderness over the Sacroiliac joint on the Right side Knee= flexion and extension of the right knee associated with pain, tenderness over the medial and lateral aspect of the right knee. MRI of the lumbar spine done in 2019= degenerative disc disease Assessment and Plan Plan: Assessment and plan= 1-right knee arthralgia patient had no benefit from intra- articular knee injection done by orthopedic surgeon. 2-low back pain secondary to lumbar degenerative disc disease, and lumbar spondylosis with lumbar facet arthropathy Patient had no benefit after lumbar epidural steroid injections 2. 3-chronic and current use of high-risk medication( opioid ). Currently most of the pain is in the right knee , he had no benefit from right knee intra-articular steroid injection, he did not benefit from genicular nerve block , for this reason he is not a candidate to have failed the right genicular nerves MAPS reviewed and it was appropriate. Prescription refill for Neurontin 300 mg 3 times a day ,and 600 mg 3 times a day, dispense 90 ,1 refill dispense 90 with 1 refill, Mobic 7.5 mg dispensed 30 with one refill, and [place] 5/325 nightly hours when necessary dispense 40 with 1 refill, baclofen 10 mg 3 times a day dispensed 90 with one refile with 1 refill Time with Patient: Less than 30 PQRS Measure Charge Sheet Measure #130: Documentation of Current Meds in Medical Chart: Patient's medications documented in chart Measure #226: Tobacco Use: Screen & Cessation Intervention: Pt screened for tobacco use AND intervention given Measure #111: Pneumonia Vaccination: Pneumococcal vaccine NOT administered or previously given Measure #47: Advance Care Plan: Advance care planning discussed & documented, pt chose/unable to give Measure #412: Opioid Treatment Agreement: Documented signed opioid trtmnt agreemnt min once during opioid trtmnt Measure #408: Opioid Therapy Follow-up Evaluation: Patient had f/u eval minimum every 3 months during opioid therapy Measure #317: Preventitive Care & Scrn High Bld Press & F/U: Normal blood pressure, f/u not required Measure #128: Body Mass Index (BMI) Screening & Follow-up: BMI documented ABOVE normal parameters - f/u documented Measure #131: Pain Assessment & Follow-up: Pain positive & plan documented, Follow-up scheduled Measure #431: Unhealthy Alcohol Use Preventative Care & Scrn: Patient not iden tified as an unhealthy alcohol user Time with Patient: Less than 30
== END | disposition home or self-care (01) ==
LOC: PNWHC3 09:49
PROVIDERS: ATTEND Specialist
DX: M25.561 Pain in right knee (principal); M51.36 Other intervertebral disc degeneration, lumbar region; M47.816 Spondylosis without myelopathy or radiculopathy, lumbar region; Z79.891 Long term (current) use of opiate analgesic; Z79.899 Other long term (current) drug therapy
CPT/HCPCS: 99211

== ENCOUNTER → 2020-10-23 | Outpatient (CLI) | payer OTHER ==
[2020-10-23 09:52] VITALS: BP 134/67; PULSE 65; RESP 18; TEMP 98.2
--- NOTE | 2020-10-23 21:32 | P.PN ---
Subjective Progress Note Date: 10/23/20 This is a follow-up visit for this 40-year-old gentleman , who had chronic low back pain, and he had chronic right knee pain the knee pain started after a traumatic injury. Previously we have done lumbar epidural steroid injections 2, he had no benefit from it, and previously he had a right knee steroid injection done by orthopedic surgeon and he did not benefit from it, he continued to use braces around the knee. also we did genicular nerve block 2, he had minimal benefit from the genicular nerve block. Also patient tried physical therapy without any benefit, and he tried TENS unit he did not benefit from it, He reported that his pain was 8/10 in the right knee before the block dropped to 6/10. Pain is mostly around his knee and the mid thigh anteriorly to the mid calf posteriorly. Currently he is on Neurontin 900 mg 3 times a day ( 600 +300 ), Baclofen 10 mg 3 times a day, Mobic 7.5 mg daily, [place] 5/325 every 8 hours when necessary ( 40 per month ). He is trying to stay active, however it is difficult secondary to his pain, he denies any side effect of the medication and he reported the current medication helping him to control his pain and do activity of daily livings, but he reported that he is having a hard time getting Robaxin secondary to insurance approval Objective - Vital Signs Vital signs: Vital Signs Temp 98.2 F 10/23/20 09:50 Pulse 65 10/23/20 09:50 Resp 18 10/23/20 09:50 BP 134/67 10/23/20 09:50 Pulse Ox 98 10/23/20 09:50 - Exam -Constitutiona : Cooperative , not in acute distress . -HEENT : nech : supple , no Lymphadenopathy , normal thyroid size . : eyes : no ptosis , no icterus, no photophobia . - neurologic : Cranial nerve II to XII intact , no focal neurological deffecit . -psychatric : alert , oriented X 3 , appropriate affect , intact judgment and insight . -Lymphatic : no Lymphadenopathy . - musculoskeltal : Lumber spine moter stegnth lower extremities ,thigh and legs 5/5 Right side , 5/5 Left side deep tendon reflexes : normal Knee Jerk , normal ankle Jerk lumber facet Loading Test =positive Right , positive Left Range of motion of the lumbar spine Flexion 30 degrees, extension 10 degrees strait leg raising test = positive at 45 degree Fabere test= positive Right , and positive LT . tenderness over the Sacroiliac joint on the Right side Knee= flexion and extension of the right knee associated with pain, tenderness over the medial and lateral aspect of the right knee. MRI of the lumbar spine done in 2019= degenerative disc disease Assessment and Plan Plan: Assessment and plan= 1-right knee arthralgia patient had no benefit from intra- articular knee injection done by orthopedic surgeon. 2-low back pain secondary to lumbar degenerative disc disease, and lumbar spondylosis with lumbar facet arthropathy Patient had no benefit after lumbar epidural steroid injections 2. 3-chronic and current use of high-risk medication( opioid ). Currently most of the pain is in the right knee , he had no benefit from right knee intra-articular steroid injection, he did not benefit from genicular nerve block , for this reason he is not a candidate to have failed the right genicular nerves Patient had no benefit from physical therapy, patient had no benefit from TENS unit MAPS reviewed and it was appropriate. Prescription refill for Neurontin 300 mg 3 times a day ,and 600 mg 3 times a day, dispense 90 ,1 refill dispense 90 with 1 refill, Mobic 7.5 mg dispensed 30 with one refill, and [place] 5/325 nightly hours when necessary dispense 40 with 1 refill, baclofen 10 mg 3 times a day dispensed 90 with one refile with 1 refill Time with Patient: Less than 30 PQRS Measure Charge Sheet Measure #130: Documentation of Current Meds in Medical Chart: Patient's medications documented in chart Measure #226: Tobacco Use: Screen & Cessation Intervention: Pt screened for tobacco use AND intervention given Measure #111: Pneumonia Vaccination: Pneumococcal vaccine NOT administered or previously given Measure #47: Advance Care Plan: Advance care planning discussed & documented, pt chose/unable to give Measure #412: Opioid Treatment Agreement: Documented signed opioid trtmnt agreemnt min once during opioid trtmnt Measure #408: Opioid Therapy Follow-up Evaluation: Patient had f/u eval minimum every 3 months during opioid therapy Measure #317: Preventitive Care & Scrn High Bld Press & F/U: Normal blood pressure, f/u not required Measure #128: Body Mass Index (BMI) Screening & Follow-up: BMI documented ABOVE normal parameters - f/u documented Measure #131: Pain Assessment & Follow-up: Pain positive & plan documented, Follow-up scheduled Measure #431: Unhealthy Alcohol Use Preventative Care & Scrn: Patient not identi fied as an unhealthy alcohol user Time with Patient: Less than 30 Time with Patient: Less than 30
== END | disposition home or self-care (01) ==
LOC: PNWHC3 09:19
PROVIDERS: ATTEND Specialist
DX: M25.561 Pain in right knee (principal); M51.36 Other intervertebral disc degeneration, lumbar region; M47.816 Spondylosis without myelopathy or radiculopathy, lumbar region
CPT/HCPCS: 80307; G0482; G0463; 99211; 99212

== ENCOUNTER → 2021-01-01 | Outpatient (CLI) | payer OTHER ==
[2021-01-01 10:16] VITALS: BP 113/74; PULSE 63; RESP 16; TEMP 97.8
--- NOTE | 2021-01-01 10:27 | P.PN ---
Subjective Progress Note Date: 01/01/21 Deniz is a 40-year-old gentleman with chronic right leg pain. He reports he has pain mostly in the right knee. His knee pain began after trauma and he has a steel plate in the knee. He continues to have pain with any ambulation. At rest is really not a lot of pain. Pain is mostly over the lateral portion of the knee. He has had multiple epidurals, intra-articular knee injections, as well as genicular nerve blocks without any relief. He continues use of pain medication with moderate relief. He denies any side effects from medications. Review of Systems: Denies any New chest pain, short of breath, Nausea/vomitting, abdominal pain, bowel or bladder incontinence, or any overt new neurologic symptoms in his upper or lower extremities. Objective - Vital Signs Vital signs: Vital Signs Temp 97.8 F 01/01/21 10:11 Pulse 63 01/01/21 10:11 Resp 16 01/01/21 10:11 BP 113/74 01/01/21 10:11 Pulse Ox 97 01/01/21 10:11 - Exam General: Awake and alert oriented 3 no distress Respiratory exam: No audible wheezing no accessory muscle usage Cervical spine: Normal alignment, Spurling's negative, facet loading negative, Scientific Research Manager strength is 5/5, galan negative Lumbar spine: Midline alignment, flexion is normal. Extension is limited. Forward flexed body position. Lower sternal strength is 5 out of 5 bilaterally at the quadriceps and hamstrings. Bilateral knees: Minimal tenderness to palpation. There is no visible swelling. Sacroiliac joints: Nontender to palpation, JESUS MANUEL is negative, [place] negative Neuro exam: Normal sensation in bilateral upper extremities, deep tendon reflexes are 2+ bilateral upper extremities. Normal sensation in bilateral lower extremities. Deep tendon reflexes are 2+ in lower extremities Psych exam: Cooperative, appropriate mood Assessment and Plan Assessment: #1 posterior magnesium pain excellent #2 obesity #3 opioid dependence Plan: On today's visit we will refill the patient's pain medication for hydrocodone No. 40 tablets as well as gabapentin 900 mg 3 times a day. We also refill his baclofen as well as his mobility. We will take a new urine sample for him today. His last urine sample was negative for medications. Advise you that he has taken [place] this morning. I've explained to the patient at the last urine d rug screen was negative. The next one is negative for medications since he took it this morning we will likely be having a discussion regarding future medication management I have spent 24 minutes on patient care today. The time was used to review the medical records including relevant urine studies and Prescription history (MAPs), review of the available imaging, evaluation and examination of the patient, coordination of care with the medical staff and if applicable referring physicians, as well as creation of the medical record. Maps were checked and appropriate, opioid start talking form is on file and updated.
== END ==
LOC: PNWHC3 09:45
PROVIDERS: ATTEND Hospitalist
DX: M25.562 Pain in left knee (principal); M25.561 Pain in right knee; E66.9 Obesity, unspecified; F11.20 Opioid dependence, uncomplicated
CPT/HCPCS: 80307; G0482; G0463; 99212

== ENCOUNTER → 2021-02-26 | Outpatient (CLI) | payer OTHER ==
[2021-02-26 09:38] VITALS: BP 109/70; PULSE 69; RESP 16; TEMP 98.5
--- NOTE | 2021-02-26 10:04 | P.PN ---
Subjective Progress Note Date: 02/26/21 This is a follow-up visit for this 41-year-old gentleman , who had chronic low back pain, and he had chronic right knee pain the knee pain started after a traumatic injury. Previously we have done lumbar epidural steroid injections 2, he had no benefit from it, and previously he had a right knee steroid injection done by orthopedic surgeon and he did not benefit from it,. also we did genicular nerve block 2, he had minimal benefit from the genicular nerve block. Also patient tried physical therapy without any benefit, and he tried TENS unit he did not benefit from it, He reported that his pain was 8/10 in the right knee before the block dropped to 6/10. Pain is mostly around his knee and the mid thigh anteriorly to the mid calf posteriorly. Currently he is on Neurontin 900 mg 3 times a day ( 600 +300 ), Baclofen 10 mg 3 times a day, Mobic 7.5 mg daily, Slayden 5/325 every 8 hours when necessary ( 40 per month ). He is trying to stay active, however it is difficult secondary to his pain, he denies any side effect of the medication and he reported the current medication helping him to control his pain and do activity of daily livings, but he reported that he is having a hard time getting Robaxin secondary to insurance approval, Last visit his urine drug screen was negative for Neurontin, she reported that he take Neurontin 900 mg 3 times a day, he never missed any does of the medications -Constitutiona : Cooperative , not in acute distress . -HEENT : nech : supple , no Lymphadenopathy , normal thyroid size . : eyes : no ptosis , no icterus, no photophobia . - neurologic : Cranial nerve II to XII intact , no focal neurological deffecit . -psychatric : alert , oriented X 3 , appropriate affect , intact judgment and insight . -Lymphatic : no Lymphadenopathy . - musculoskeltal : Lumber spine moter stegnth lower extremities ,thigh and legs 5/5 Right side , 5/5 Left side deep tendon reflexes : normal Knee Jerk , normal ankle Jerk lumber facet Loading Test =positive Right , positive Left Range of motion of the lumbar spine Flexion 30 degrees, extension 10 degrees strait leg raising test = positive at 45 degree Fabere test= positive Right , and positive LT . tenderness over the Sacroiliac joint on the Right side Knee= flexion and extension of the right knee associated with pain, tenderness over the medial and lateral aspect of the right knee. MRI of the lumbar spine done in 2019= degenerative disc disease Assessment and plan= 1-right knee arthralgia patient had no benefit from intra-articular knee injection done by orthopedic surgeon. 2-low back pain secondary to lumbar degenerative disc disease, and lumbar spondylosis with lumbar facet arthropathy Patient had no benefit after lumbar epidural steroid injections 2. 3-chronic and current use of high-risk medication( opioid ). Currently most of the pain is in the right knee , he had no benefit from right knee intra-articular steroid injection, he did not benefit from genicular nerve block , for this reason he is not a candidate to have failed the right genicular nerves Patient had no benefit from physical therapy, patient had no benefit from TENS unit MAPS reviewed and it was appropriate. Prescription refill for Neurontin 300 mg 3 times a day ,and 600 mg 3 times a day, dispense 90 ,1 refill dispense 90 with 1 refill, Mobic 7.5 mg dispensed 30 with one refill, and Slayden 5/325 nightly hours when necessary dispense 40 with 1 refill, baclofen 10 mg 3 times a day dispensed 90 with one refile with 1 refill The narcotic consent was signed and patient agreed and understood the side effects and complications of opioid treatment. Patient signed the narcotic agreement, and was orally counseled, not to overuse, not to abuse, not to Divert , not tp sell pain medication, and to take it as prescribed only, Patient was counseled not to drive or operate heavy equipment while using narcotic medication, and advised not to use alcohol or any Illicit drugs while using the narcotis. understanding that lack of compliance with any of the above instructions, will likely to cause discharge from, the pain service, not to renew his narcotic prescriptions MAPS Reviwed and it was apropriate Urine drug screened her today (because the previous urine drug screen was negative for gabapentin patient insists that he is taking gabapentin 3 times a d ay ) I have spent 25 minutes on patient care today. The time was used to review the medical records including relevant urine studies and Prescription history (MAPs), review of the available imaging, evaluation and examination of the patient, coordination of care with the medical staff and if applicable referring physicians, as well as creation of the medical record. Maps were checked and appropriate, opioid start talking form is on file and updated, urine drug screens of been appropriate and have been reviewed. , PQRS Measure Charge Sheet Measure #130: Documentation of Current Meds in Medical Chart: Patient's medications documented in chart Measure #226: Tobacco Use: Screen & Cessation Intervention: Pt screened for tobacco use AND intervention given Measure #111: Pneumonia Vaccination: Pneumococcal vaccine NOT administered or previously given Measure #47: Advance Care Plan: Advance care planning discussed & documented, pt chose/unable to give Measure #412: Opioid Treatment Agreement: Documented signed opioid trtmnt agreemnt min once during opioid trtmnt Measure #408: Opioid Therapy Follow-up Evaluation: Patient had f/u eval minimum every 3 months during opioid therapy Measure #317: Preventitive Care & Scrn High Bld Press & F/U: Normal blood pressure, f/u not required Measure #128: Body Mass Index (BMI) Screening & Follow-up: BMI documented ABOVE normal parameters - f/u documented Measure #131: Pain Assessment & Follow-up: Pain positive & plan documented, Follow-up scheduled Measure #431: Unhealthy Alcohol Use Preventative Care & Scrn: Patient not identified as an unhealthy alcohol user Objective - Vital Signs Vital signs: Vital Signs Temp 98.5 F 02/26/21 09:35 Pulse 69 02/26/21 09:35 Resp 16 02/26/21 09:35 BP 109/70 02/26/21 09:35 Pulse Ox 98 02/26/21 09:35
== END ==
LOC: PNWHC3 09:23
PROVIDERS: ATTEND Specialist
DX: M51.36 Other intervertebral disc degeneration, lumbar region (principal); M47.816 Spondylosis without myelopathy or radiculopathy, lumbar region; M25.561 Pain in right knee; Z79.891 Long term (current) use of opiate analgesic; F17.200 Nicotine dependence, unspecified, uncomplicated
CPT/HCPCS: 80307; G0482; G0463; 99212